=== PATIENT | female | born 1965 | race Two or more races ===

== ENCOUNTER 2025-01-04 07:02 | Outpatient (CLI) | payer OTHER ==
[2025-01-04 07:45] LABS: Hematocrit 46.6 % (36.0-46.0); Hemoglobin 15.9 g/dL (12.2-16.2); Mean Corpuscular Hemoglobin 32.0 pg (28.0-32.0); Mean Corpuscular Volume 93.6 fL (80.0-100.0); Nucleated Red Blood Cells % 0.0 %
[2025-01-04 08:02] LABS: Alanine Aminotransferase 25 U/L (7-40); Alkaline Phosphatase 104 U/L (46-116); Anion Gap 9 (5-15); BUN/Creatinine Ratio 10.8 (10.0-20.0); Bilirubin, Total 0.7 mg/dL (0.2-1.0); Blood Urea Nitrogen 10 mg/dL (9-23); Calcium 9.5 mg/dL (8.7-10.4); Carbon Dioxide 26 mmol/L (20-31); Cholesterol 144 mg/dL (< 200); Glucose 99 mg/dL (74-106); HDL Cholesterol 43 mg/dL (40-59); Potassium 3.8 mmol/L (3.5-5.1); Sodium 143 mmol/L (136-145); Total Protein 7.4 g/dL (5.7-8.2); Triglycerides 113 mg/dL (< 150)
[2025-01-04 08:17] LABS: Albumin 4.8 g/dL (3.2-4.8); Chloride 108 mmol/L (98-107)
[2025-01-04 08:52] LABS: Iron 115.0 ug/dL (50-170)
[2025-01-04 08:55] LABS: Total Iron Binding Capacity 302.0 ug/dL (250-425)
[2025-01-05 18:48] LABS: Hepatitis B Surface Antigen Negative (Negative); Hepatitis C Antibody Negative (Negative)
[2025-01-05 18:49] LABS: Hepatitis A Total Antibody Negative (Negative)
== END 2025-01-04 17:00 | disposition home or self-care (01) ==
LOC: LAB 07:02
PROVIDERS: ATTEND Licensed Practical Nurse
DX: D50.9 Iron deficiency anemia, unspecified (principal); E55.9 Vitamin D deficiency, unspecified; Z13.220 Encounter for screening for lipoid disorders; Z00.01 Encounter for general adult medical examination with abnormal findings; Z13.29 Encounter for screening for other suspected endocrine disorder; Z13.1 Encounter for screening for diabetes mellitus; Z13.6 Encounter for screening for cardiovascular disorders; Z12.11 Encounter for screening for malignant neoplasm of colon
CPT/HCPCS: 36415; 80053; 80061; 82043; 82274; 82306; 82607; 83036; 83540; 83550; 84443; 85025; 86704; 86706; 86708; 86803; 87340

== ENCOUNTER 2025-01-25 08:56 | Outpatient (CLI) | payer OTHER ==
[2025-01-25 10:16] LABS: Alanine Aminotransferase 21 U/L (7-40); Albumin 4.4 g/dL (3.2-4.8); Alkaline Phosphatase 97 U/L (46-116); Anion Gap 9 (5-15); BUN/Creatinine Ratio 9.8 (10.0-20.0); Bilirubin, Total 0.6 mg/dL (0.2-1.0); Calcium 9.3 mg/dL (8.7-10.4); Carbon Dioxide 26 mmol/L (20-31); Glucose 97 mg/dL (74-106); Potassium 4.1 mmol/L (3.5-5.1); Sodium 143 mmol/L (136-145); Total Protein 7.4 g/dL (5.7-8.2)
[2025-01-25 10:39] LABS: Blood Urea Nitrogen 9 mg/dL (9-23); Chloride 108 mmol/L (98-107)
== END 2025-01-25 17:00 | disposition home or self-care (01) ==
LOC: LAB 08:56
PROVIDERS: ATTEND Licensed Practical Nurse
DX: N64.53 Retraction of nipple (principal); Z12.39 Encounter for other screening for malignant neoplasm of breast; Z00.01 Encounter for general adult medical examination with abnormal findings
CPT/HCPCS: 36415; 80053; 82670; 83615; 84144; 86300